=== PATIENT | male | born 1975 | race Caucasian/White ===

== ENCOUNTER → 2016-07-02 | Day surgery (SDC) | payer OTHER ==
[~2016-07-02] VITALS: Ht 172.7 cm; Wt 97.1 kg
[~2016-07-02] MED LIST: *MEPERIDINE 25 MG INJ VIAL PERIprocedural Use ONLY ONE; ACETAMINOPHEN 1000 MG/100 ML VIAL IV ONE; ACETAMINOPHEN/HYDROcodone 325 MG/7.5 MG TAB PO PRN; BUPIVACAINE/EPINEPHRINE 0.25% PF 30 ML VIAL ONE; CHLORHEXIDINE GLUCONATE 4% SOLN 120 ML BTL TOP SCH; CYCL1TAB29 PO; DEXAMETHASONE SOD PHOS 4 MG/ML VIAL ONE; DICL75TA PO; DO NOT ADM ANY ANTICOAGULANT DRUGS XX PRN; FAMOTIDINE 20 MG/2 ML VIAL ONE; GENTAMICIN SULFATE 80 MG/2 ML VIAL ONE; HYDR-3580 PO; INSULIN HUMAN REGULAR 1,000 UNITS/10 ML VIAL SQ PRN; LACTATED RINGER'S 1000 ML INJ 1,000 ML IV ONE; LACTATED RINGER'S 1000 ML IV SCH; METOPROLOL TARTRATE 25 MG TAB PO PRN; MIDAZOLAM HCL 2 MG/2 ML VIAL ONE; ONDANSETRON HCL 4 MG/2 ML VIAL IV PUSH ONE; PROPOFOL 200 MG/20 ML AMP IV ONE; SODIUM CHLORID 0.9% 500 ML IV SCH; TRAM50TA PO; ceFAZolin 1,000 MG/NS 100 ML IV SCH; ceFAZolin 2 GM PREMIX 50 ML ONE; fentaNYL CITRATE 250 MCG/5 ML AMP ONE
[2016-07-02 09:00] VITALS: BP 160/96; PULSE 86; RESP 18; TEMP 98.6; O2SAT 97
--- NOTE | 2016-07-02 14:28 | RADRPT ---
EXAM DATE/TIME: 07/02/2016 12:31 [place] COMPARISON: FLUOROSCOPY PORTABLE UP TO 1HR, July 02, 2016, 0:00. INDICATIONS : Level Localization L1,L2 and L2,L3. MEDICAL HISTORY : Low back pain. SURGICAL HISTORY : None. ENCOUNTER: Initial ACUITY: 1 day PAIN SCORE: Non-responsive. LOCATION: Lumbar spine. FINDINGS: The single limited intraoperative view of the lumbar spine demonstrates surgical instruments posterio rly within the upper lumbar spine. Exact level can not be confirmed on the bases of this limited srikanth m. CONCLUSION: Limited intraoperative film demonstrates surgical instruments posteriorly within the upper lumbar spi ne. The exact level cannot be confirmed with certainly on this limited film. Buzz Hitchcock MD on July 02, 2016 at 14:06 Board Certified Radiologist. This report was verified electronically.
[2016-07-02 15:30] VITALS: BP 115/72; PULSE 90; RESP 16; TEMP 98.6; O2SAT 96
--- NOTE | 2016-07-03 11:14 | MP ---
cc: REJI FLOYD M.D. DATE OF SURGERY 07/02/2016 PREOPERATIVE DIAGNOSIS 1. L1-2, L2-3 herniated nucleus pulposus, osteophyte disk complex 2. Bilateral lumbar radiculitis with bilateral lower extremity weakness. 3. Cervical myelopathy, status post C4-5, C5-6 anterior cervical diskectomy, C5 corpectomy, anterior fusion, anterior spinal instrumentation August 29, 2015. POSTOPERATIVE DIAGNOSIS 1. L1-2, L2-3 herniated nucleus pulposus, osteophyte disk complex 2. Bilateral lumbar radiculitis with bilateral lower extremity weakness. 3. Cervical myelopathy, status post C4-5, C5-6 anterior cervical diskectomy, C5 corpectomy, anterior fusion, anterior spinal instrumentation August 29, 2015. PROCEDURE L1-2 bilateral decompressive laminectomy, bilateral foraminotomy, by partial facetectomy and diskectomy; L2-3 bilateral laminectomy, foraminotomy, partial facetectomy, diskectomy. SURGEON Adonis Floyd MD HIDE PULLER DAVID [place] None ESTIMATED BLOOD LOSS 50 cc COMPLICATIONS None ANESTHESIA General DRAINS None CONDITION Stable PLAN OF ACTIVITY Per orders. PROCEDURE The patient was brought into the operating room, had satisfactory general anesthesia by the Department of Anesthesia. The patient was carefully transferred onto the [facility] spinal frame. All pressure points were well-padded. The lumbosacral spine was prepped and draped in the usual sterile manner. Fluoroscopic guidance was used to identify the L2-3 and L1-2 interspaces. Local anesthesia was used at the operative site to provide postoperative hemostasis and also analgesia. A midline incision made over L1-L3. Dissection carried through skin and subcutaneous tissue. All bleeders were coagulated. Paraspinal muscles gently removed from the posterior elements at L1-2 and L2-3. Multiple fluoroscopic guidance was used to identify the L2-3 interspace. A bilateral laminectomy was performed in this area. Dissection was carried on both the right and left side at L2-3. The patient was found to have a calcified osteophyte disk complex. Some of the disk was able to be remove, but most of it was calcified. With the decompression at the area of the osteophyte disk complex, calcified herniated pulposus, there was a very satisfactory decompression. The decompression was then carried further in a cephalad manner because the patient's hernia disk at L1-2 had migrated inferiorly beyond the L2 pedicle. This area was very adequately decompressed with a decompressive bilateral hemilaminectomy. Dissection was carried on the patient's right side and left side. Again, the patient was found to have a calcified osteophyte disk complex. Some of the disc was removed, but most of it was calcified. With this, the patient was found to have very satisfactory decompression of the neurological elements. Surgiflo was used to maintain excellent hemostasis. The wound was irrigated with copious amounts of sterile saline antibiotic solution. The wound itself was dry. There was no evidence of any cerebrospinal fluid leaks. The wound was closed in multiple layers using #2 Tycron sutures. Subcuticular layers were closed with 2-0 Vicryl. The skin was approximated with interrupted 2-0 nylon. The instrument, sponge and sharp count correct after the operation. The patient tolerated the procedure well and arrived in the Recovery Room in stable and satisfactory condition. MD ROSANNE Yanez/KAPIL /1:10 PM /10:54 AM
== END | disposition home or self-care (01) ==
LOC: HSDC 08:23
PROVIDERS: ATTEND Orthopaedic Surgery Orthopaedic Surgery of the Spine
DX: M51.16 Intervertebral disc disorders with radiculopathy, lumbar region (principal); M16.0 Bilateral primary osteoarthritis of hip; M50.00 Cervical disc disorder with myelopathy, unspecified cervical region; M48.02 Spinal stenosis, cervical region
CPT/HCPCS: 00630; 63030; 63035; 72020; 76000; 86850; 86900; 86901; J0131; J0690; J1100; J1580; J2175; J2250; J2405; J3010; J7120